=== PATIENT | female | born 1950 | race Caucasian/White ===

== ENCOUNTER 2023-01-27 20:54 | Emergency (ER) | payer OTHER ==
[~2023-01-27] VITALS: Ht 160 cm; Wt 57.6 kg
[2023-01-27 21:00] VITALS: BP 98/78
[2023-01-27 21:15] VITALS: BP 110/75
[2023-01-27 21:32] VITALS: BP 142/85
[2023-01-27 21:40] LABS: BASO% 0.3 % (0-3); EOS% 0.2 % (0-8); HEMATOCRIT 35.7 % (37.0-47.0); HEMOGLOBIN 11.9 g/dl (12.0-16.0); IMMATURE GRANULOCYTES 0.2 % (0.0-5.0); LYMPH% 5.2 % (15-41); MEAN CELL VOLUME 88.8 fL CALC (80.0-100.0); MEAN CORPUSCULAR HGB 29.6 pG CALC (26.0-32.0); MEAN CORPUSCULAR HGB CONC 33.3 g/dL CAL (32.0-36.0); MONO% 12.8 % (2-13); NEUT# 5.03 thou/uL (2.00-7.15); NEUT% 81.3 % (42-76); RED BLOOD COUNT 4.02 mill/uL (4.20-5.60); RED CELL DISTRI WIDTH 19.3 % (11.5-15.5)
[2023-01-27 21:45] VITALS: BP 139/87
[2023-01-27 21:56] LABS: BILIRUBIN, TOTAL 0.9 mg/dL (0.02-1.3); CREATININE 1.3 mg/dL (0.5-1.0); TOTAL PROTEIN 6.1 g/dL (6.3-8.2)
[2023-01-27 21:58] LABS: ACT PARTIAL THROMBO TIME 25.2 SECONDS (20.0-32.5); PROTHROMBIN TIME 9.8 SECONDS (9.0-12.5)
[2023-01-27 22:00] VITALS: BP 147/97
[2023-01-27 22:03] LABS: POTASSIUM 1.5 mmol/l (3.5-5.1)
[2023-01-27 22:15] VITALS: BP 166/88
[2023-01-28 02:11] VITALS: BP 166/88
== END 2023-01-28 02:11 | disposition other institution (70) | DRG 280 ==
LOC: ED 20:54
PROVIDERS: Emergency Medicine
DX: I21.4 Non-ST elevation (NSTEMI) myocardial infarction (principal); K85.90 Acute pancreatitis without necrosis or infection, unspecified; E87.6 Hypokalemia; E83.42 Hypomagnesemia; E86.0 Dehydration; I10 Essential (primary) hypertension; M06.9 Rheumatoid arthritis, unspecified; I25.10 Atherosclerotic heart disease of native coronary artery without angina pectoris; Z95.5 Presence of coronary angioplasty implant and graft
CPT/HCPCS: Q9967; S0164

== ENCOUNTER 2023-02-25 15:33 | Emergency (ER) | payer MEDICARE ==
[~2023-02-25] VITALS: Ht 160 cm; Wt 54.0 kg
[2023-02-25 15:44] VITALS: BP 137/84
[2023-02-25 16:00] VITALS: BP 118/69
[2023-02-25 16:15] VITALS: BP 119/68
[2023-02-25 16:31] VITALS: BP 107/61
[2023-02-25 16:38] VITALS: BP 107/61
== END 2023-02-25 16:42 | disposition home or self-care (01) ==
LOC: ED 15:33
DX: S51.812A Laceration without foreign body of left forearm, initial encounter (principal); R53.1 Weakness; I10 Essential (primary) hypertension; M06.9 Rheumatoid arthritis, unspecified; I25.10 Atherosclerotic heart disease of native coronary artery without angina pectoris; M79.7 Fibromyalgia; W18.2XXA Fall in (into) shower or empty bathtub, initial encounter; Y93.E1 Activity, personal bathing and showering; Y92.002 Bathroom of unspecified non-institutional (private) residence as the place of occurrence of the external cause